=== PATIENT | male | born 1960 | race Caucasian/White ===

== ENCOUNTER → 2016-04-02 | Outpatient (CLI) | payer BC ==
--- NOTE | 2016-04-03 07:33 | US ---
EXAMINATION TYPE: US carotid duplex BILAT DATE OF EXAM: 04/02/2016 4:25 PM COMPARISON: NONE CLINICAL HISTORY: US. Syncope/collapse EXAM MEASUREMENTS: RIGHT: Peak Systolic Velocity (PSV) cm/sec ----- Right CCA: 104.3 ----- Right ICA: 93.0 ----- Right ECA: 114.4 ICA/CCA ratio: 0.9 RIGHT: End Diastole cm/sec ----- Right CCA: 22.2 ----- Right ICA: 22.2 ----- Right ECA: 14.7 LEFT: Peak Systolic Velocity (PSV) cm/sec ----- Left CCA: 128.3 ----- Left ICA: 109.4 ----- Left ECA: 110.6 ICA/CCA ratio: 0.9 LEFT: End Diastole cm/sec ----- Left CCA: 33.6 ----- Left ICA: 38.7 ----- Left ECA: 15.9 VERTEBRALS (direction of flow): Right Vertebral: Antegrade Left Vertebral: Antegrade IMPRESSION: Mild plaque noted bilateral bifurcations. No increased velocities. NO significant stenos is. Criteria for Assigning % of Stenosis / Diameter reduction (Estimation based on the indirect measurements of the internal carotid artery velocities (ICA PSV). 1. Normal (no stenosis)=ICA PSV < 125 cm/s: ratio < 2.0: ICA EDV<40 cm/s. 2. Less than 50% stenosis=ICA PSV < 125 cm/s: ratio < 2.0: ICA EDV<40 cm/s. 3. 50 to 69% stenosis=ICA PSV of 125 to 230 cm/s: ration 2.0 ? 4.0: ICA EDV 40-100 cm/s. 4. Greater than 70% stenosis to near occlusion= ICA PSV > 230 cm/s: ratio > 4.0: ICA EDV > 100 cm/s. 5. Near occlusion= ICA PSV velocities may be low or undetectable: variable ratio and ICA EDV. 6. Total occlusion=unable to detect flow.
== END | disposition home or self-care (01) ==
LOC: RADUSWWP 15:57
PROVIDERS: ATTEND Family Medicine
DX: I65.23 Occlusion and stenosis of bilateral carotid arteries (principal)
CPT/HCPCS: 93880

== ENCOUNTER → 2021-05-19 | Outpatient (CLI) | payer BC ==
--- NOTE | 2021-05-19 22:32 | CT ---
EXAMINATION TYPE: CT abdomen pelvis wo/w con DATE OF EXAM: 05/19/2021 COMPARISON: CT dated 10/15/2015 HISTORY: RUQ pain and gas CT DLP: 1998 mGycm Automated exposure control for dose reduction was used. TECHNIQUE: Helical acquisition of images was performed from the lung bases through the pelvis. CONTRAST: Performed with Oral Contrast and without and with IV Contrast, patient injected with 100 mL of Isovue 300. FINDINGS: Right renal pelvis staghorn stone measuring 15 x 19 x 11 mm. Associated surrounding fat stranding and apparent soft tissue thickening, this could be related to chronic infection however urothelial lesio n cannot be excluded. Please correlate with urinalysis results. Dilated right upper and to a lesser e xtent middle calyceal group likely secondary to the renal pelvis stone. Nonobstructing 2 mm calculus is seen at the lower pole of the right kidney. No radiodense left renal, ureteric or urinary bladder calculi. No hydroureter or left hydronephrosis. Bilateral perinephric fat stranding, nonspecific. Small bilateral renal cysts without suspicious fea tures, otherwise unremarkable kidneys. Unremarkable urinary bladder, prostate and seminal vesicles. No definite hepatic focal lesion. Unremarkable gallbladder, spleen, pancreas and adrenals. Retroaorti c left renal vein. Minimal arterial atherosclerotic calcifications. Unremarkable stomach and duodenum . Segments of mild nonspecific colonic wall thickening, most evident involving the cecum as well as t he terminal ileum, please correlate with coloscopy results. Unremarkable remainder of the small bowel . Fat-containing umbilical hernia. No suspicious lymphadenopathy or sizable ascites. Unremarkable anne marie g bases. Degenerative changes at L5-S1 level. IMPRESSION: Partially obstructing right renal pelvis stone as described above. Surrounding fat stranding and soft tissue thickening which could be related to chronic infection however associated urothelial lesion c annot be excluded. Please correlate with urinalysis results including cytology. Further urology consu ltation can be also considered. Segments of colonic wall thickening, most evident at the cecum as well as the terminal ileum, please correlate with coloscopy results. Other incidental findings as detailed above.
== END | disposition home or self-care (01) ==
LOC: RADCTMAIN 13:31
PROVIDERS: ATTEND Family Medicine
DX: N20.0 Calculus of kidney (principal); R10.84 Generalized abdominal pain
CPT/HCPCS: 82565; 84520; 74178; 36415; Q9967

== ENCOUNTER 2021-07-11 08:55 | Day surgery (SDC) | payer BC ==
[2021-07-09 11:44] VITALS: BMI 27.8
[~2021-07-11 08:55] MED LIST: LACTATED RINGERS 1,000 ML IV SCH
[2021-07-11 09:16] VITALS: TEMP 98.2
[2021-07-11] MEDS ORDERED: LIDOCAINE 1% INJ 10MG/ML (20 ML MDV) ONE (10:30)
[2021-07-11] MEDS ORDERED: PROPOFOL 10 MG/ML 20 ML VIAL IV ONE (10:30)
[2021-07-11] MEDS ORDERED: IV FLUID CONTINUATION 1,000 ML IV ONE (10:46)
--- NOTE | 2021-07-11 10:48 | P.PCN ---
Date of Procedure: 07/11/21 Procedure(s) Performed: BRIEF HISTORY: Patient is a 60-year-old pleasant male scheduled for an elective colonoscopy as a part of the for colorectal neoplasia. PROCEDURE PERFORMED: Colonoscopy. PREOPERATIVE DIAGNOSIS: Screening for colon cancer. IV sedation per Anesthesia. PROCEDURE: After informed consent was obtained, the patient, was brought into the endoscopy unit. IV sedation was administered by Anesthesia under continuous monitoring. Digital rectal examination was normal. Initially the Olympus CF-160 flexible video colonoscope was then inserted in the rectum, gradually advanced into the cecum without any difficulty. Careful examination was performed as the scope was gradually being withdrawn. Ileocecal valve and the appendiceal orifice were visualized and appeared normal. Prep was excellent. Mucosa of the cecum, ascending colon, transverse colon, descending colon, sigmoid colon, and rectum appeared normal. Retroflexion was performed in the rectum and no lesions were seen. The patient tolerated the procedure well. IMPRESSION: Normal-appearing colon from rectum to cecum no evidence of colorectal neoplasia . RECOMMENDATIONS: Findings of this examination were discussed with the patient as well as a family. He was advised to have a repeat screening colonoscopy in 10 years.
[2021-07-11 11:08] VITALS: BP 172/92; PULSE 62; RESP 15
== END 2021-07-11 11:25 | disposition home or self-care (01) ==
LOC: ORWHC2ENDO 08:55
PROVIDERS: ATTEND Internal Medicine Gastroenterology
DX: Z12.11 Encounter for screening for malignant neoplasm of colon (principal); I10 Essential (primary) hypertension; K21.9 Gastro-esophageal reflux disease without esophagitis; Z79.84 Long term (current) use of oral hypoglycemic drugs; Z79.899 Other long term (current) drug therapy
CPT/HCPCS: J2001; J2704; G0121

== ENCOUNTER 2021-11-20 07:11 | Day surgery (SDC) | payer BC ==
--- NOTE | 2021-11-15 09:00 | P.GSHP ---
History of Present Illness H&P Date: 11/15/21 Chief Complaint: Right flank pain The patient is a 61-year-old white male who underwent right ureteroscopy with holmium laser lithotripsy in 2016. He now presents with right flank pain. CT scan shows a 15 x 19 x 11 mm right renal pelvic calculus, as well as a 2 mm right lower pole renal calculus. He was offered the options of a percutaneous nephrolithotomy versus ureteroscopy with laser lithotripsy. He has elected to undergo the latter. He understands that this may require a staged procedure given the stone burden. - Constitutional Constitutional: Denies chills, Denies fever - Gastrointestinal Gastrointestinal: Denies nausea, Denies vomiting - Genitourinary (Male) Genitourinary: Reports flank pain, Reports kidney stones, Denies hematuria Past Medical History Past Medical History: GERD/Reflux, Hypertension Additional Past Medical History / Comment(s): kidney stones,states "not diabetic but takes metformin because has had elevated blood sugars ,migraines History of Any Multi-Drug Resistant Organisms: None Reported Additional Past Surgical History / Comment(s): colonoscopy, Past Anesthesia/Blood Transfusion Reactions: No Reported Reaction Additional Past Anesthesia/Blood Transfusion Reaction / Comment(s): WAS SLOW TO WAKE UP AFTER COLONOSCOPY Smoking Status: Never smoker - Past Family History Father History Unknown: Yes Mother History Unknown: Yes Medications and Allergies Home Medications Medication Instructions Recorded Confirmed Type SUMAtriptan succinate [Imitrex] 50 mg PO DAILY PRN 10/17/15 07/11/21 History cloNIDine 0.3 MG/24HR PATCH 2 each TRANSDERM MO 10/17/15 07/11/21 History [Catapres-Tts 0.3MG Patch] Ergocalciferol [Vitamin D2 (1250 1,250 mcg PO FR 07/09/21 07/11/21 History Mcg = 05294 Iu)] Famotidine 40 mg PO DAILY 07/09/21 07/11/21 History Ibuprofen/Pseudoephedrine HCl 1 each PO DAILY 07/09/21 07/11/21 History [Ibuprofen Cold-Sinus Cplt] Montelukast [Singulair] 10 mg PO DAILY 07/09/21 07/11/21 History atenoloL [Tenormin] 100 mg PO BID 07/09/21 07/11/21 History metFORMIN HCL [Glucophage] 1,000 mg PO DIRECTED PRN MDD PT 07/09/21 07/11/21 History NOT DIABETIC Allergies Allergy/AdvReac Type Severity Reaction Status Date / Time No Known Allergies Allergy Verified 07/11/21 09:10 Surgical - Exam - General well developed, well nourished, no distress - Respiratory normal respiratory effort - Abdomen Abdomen: soft, non tender, no guarding, no rigid, no rebound Hernia: umbilical - Genitourinary normal penis with no external lesions, testicles non-tender - Psychiatric oriented to time, oriented to person, oriented to place, speech is normal, memory intact Results - Imaging CT scan - abdomen: report reviewed, image reviewed Assessment and Plan (1) Calculus of kidney Status: Acute Code(s): N20.0 - CALCULUS OF KIDNEY SNOMED Code(s): 40164503 Plan: Cystoscopy, right ureteroscopy with Holmium laser lithotripsy, possible stone basketing, right ureteral stent insertion. The procedure has been reviewed in detail with the patient. He is aware of potential risks, which include anesthesia, bleeding, infection, and ureteral injury. He may require a secondary procedure given the stone burden.
[2021-11-19 12:18] VITALS: BMI 28.1
[~2021-11-20 07:11] MED LIST changes: +DEXAMETHASONE SOD PHOSPHATE 4 MG/ML 1 ML VIAL IV ONE; +HYDROmorphone 0.5 MG/0.5 ML SYRINGE IVP PRN; +LIDOCAINE 1% (10MG/ML) FOR IV START INTRADERMA PRN; +ONDANSETRON 4 MG/2 ML VIAL IVP PRN
--- NOTE | 2021-11-20 08:02 | XR ---
EXAMINATION TYPE: XR KUB DATE OF EXAM: 11/20/2021 HISTORY: Right renal calculus N 20.0 Comparison: CT abdomen pelvis 05/19/2021, KUB 10/18/2015. Technique: Supine KUB was obtained. Findings: Right renal calculi: Redemonstration of 2.4 x 1.2 cm calculus in the right renal pelvis. Right ureteral calculi: None Visualized. Left renal calculi: None Visualized. Left ureteral calculi: None Visualized. Pelvic calcifications: None Visualized. Bowel gas pattern is unremarkable. No free air. No mass effects. IMPRESSION: Redemonstration of 2.4 x 1.2 cm calculus in the right renal pelvis.
[2021-11-20] MEDS ORDERED: LACTATED RINGERS 1,000 ML IV ONE (10:25)
[2021-11-20 11:12] VITALS: TEMP 97.4
--- NOTE | 2021-11-20 11:26 | FL ---
EXAMINATION TYPE: FL guidance operating room DATE OF EXAM: 11/20/2021 CLINICAL HISTORY: Right-sided renal calculus TECHNIQUE: Fluoroscopy. COMPARISON: Same day abdominal x-ray. FINDINGS: Fluoroscopic guidance was provided during right sided calculus treatment procedure perform ed by Dr. Denney. A total of 37 seconds of fluoroscopic time was utilized during the procedure and 3 spot images was acquired. Intraoperative images show placement of a ureter stent. IMPRESSION: As Above.
[2021-11-20] MEDS ORDERED: hydrALAZINE HCL 20 MG/ML 1 ML VIAL IVP ONE (11:36)
[2021-11-20 11:48] VITALS: RESP 16
--- NOTE | 2021-11-20 12:08 | P.OP ---
Date of Procedure: 11/20/21 Preoperative Diagnosis: Right renal calculus Postoperative Diagnosis: Same Procedure(s) Performed: Cystoscopy, right ureteroscopy with Holmium laser lithotripsy, right ureteral stent insertion Anesthesia: MARIA ELENAA Surgeon: Joao Denney Estimated Blood Loss (ml): 0 IV fluids (ml): 700 Pathology: none sent Condition: stable Disposition: PACU Indications for Procedure: The patient is a 61-year-old white male who underwent right ureteroscopy with holmium laser lithotripsy in 2016. He now presents with right flank pain. CT scan shows a 15 x 19 x 11 mm right renal pelvic calculus, as well as a 2 mm right lower pole renal calculus. He was offered the options of a percutaneous nephrolithotomy versus ureteroscopy with laser lithotripsy. He has elected to undergo the latter. He understands that this may require a staged procedure given the stone burden. Operative Findings: Large right renal pelvic calculus, fragmented completely. Description of Procedure: The patient was taken to the operating room and placed in the dorsolithotomy position, with legs supported in Abdirahman stirrups. The external genitalia was prepped and draped sterilely. The 30 lens was used to introduce the 21-Malay Sewell cystoscopic sheath through the urethra and into the bladder under direct vision. The prostatic urethra showed evidence of mild lateral lobe enlargement. The bladder was examined in its entirety. Both ureteral orifices were normal anatomic location and configuration, and clear urine effluxed from both. No tumors or foreign bodies were seen. A 0.038 inch Glidewire was passed through the cystoscope. The ureteral orifice was cannulated, and the Glidewire was advanced up to the renal pelvis. The cystoscope was removed, and an 11/13- Malay ureteral access catheter was passed over the wire, up to the proximal ureter. The flexible ureteroscope was then passed through the ureteral access catheter sheath, up to the right renal pelvis. A large calculus was seen within the renal pelvis. The 272 micron Holmium laser probe was passed through the ureteroscope, and lithotripsy was performed utilizing a dusting mode. This reduced most of the calculus to powder, but there was some residual gravel which was fragmented using a popcorning methodology until there were no residual calculus fragments exceeding the size of the laser fiber tip. The ureteroscope was withdrawn. There was no evidence of ureteral trauma. The Glidewire was passed through the ureteral access catheter sheath, which was removed. The Glidewire was backloaded into the cystoscope, which was passed into the bladder. A 26 cm, 4.8-Malay double-J ureteral stent was placed over the wire. Proper stent positioning was verified fluoroscopically and endoscopically. The bladder was emptied and the cystoscope removed. The patient tolerated the procedure well and was taken to the recovery room in stable condition. KALYANI WOOD Report: Procedure Acuity: Elective Stone Size and Location: 11 x 15 x 19 mm right renal pelvic calculus Ureteral Dilation: No Ureteral Access Sheath Used: Yes Stone Sent for Analysis: No All Stones/Fragments Were Removed with a Basket: No Complications: No Preoperative Antibiotics Given: Yes Stent Placed: Yes If Stent Placed, Was String Left Attached: No If Stent Placed, When is it to be Removed: 2 weeks Discharge Medications: Tamsulosin, Toradol
[2021-11-20 12:28] VITALS: BP 142/86; PULSE 67
== END 2021-11-20 12:29 | disposition home or self-care (01) ==
LOC: OR 07:11
PROVIDERS: ATTEND Urology
DX: N20.1 Calculus of ureter (principal); K21.9 Gastro-esophageal reflux disease without esophagitis; I10 Essential (primary) hypertension; G43.909 Migraine, unspecified, not intractable, without status migrainosus; Z84.89 Family history of other specified conditions; Z79.899 Other long term (current) drug therapy
CPT/HCPCS: 52353; 74018; C2625; C1769; J0360; J1100; J0690; J2405

== ENCOUNTER → 2022-01-19 | Outpatient (CLI) | payer BC ==
--- NOTE | 2022-01-19 12:23 | US ---
EXAMINATION TYPE: US kidneys/renal and bladder DATE OF EXAM: 01/19/2022 COMPARISON: 12/02/2015 CLINICAL HISTORY: 61-year-old male N20.0 Calculus of kidney. Hx of stones had them removed in 2021. TECHNIQUE: Multiple sonographic images of the kidneys and bladder are obtained. FINDINGS: EXAM MEASUREMENTS: Right Kidney: 11.1 x 5.5 x 4.6 cm Left Kidney: 10.5 x 4.5 x 4.4 cm Right Kidney: Hypoechoic area central mid to lower pole measuring 1.6 x 1.3 x 1.3 cm. No calyceal di latation to suggest hydronephrosis. Left Kidney: Anechoic area lower pole 1.4 x 1.3 x 1.5cm and 1.1 x 1.5 x 1.3 cm, likely benign cysts. Bladder: wnl Bilateral Jets seen: Yes IMPRESSION: 1. Similar findings suggesting a parapelvic cyst mid to lower pole right kidney. 2. A couple benign cortical cyst at the lower pole left kidney measuring up to 1.5 cm. 3. No hydronephrosis.
== END | disposition home or self-care (01) ==
LOC: RADUSWWP 08:43
PROVIDERS: ATTEND Urology
DX: N28.1 Cyst of kidney, acquired (principal)
CPT/HCPCS: 76770

== ENCOUNTER → 2022-09-16 | Outpatient (CLI) | payer BC ==
[2022-09-16 16:46] LABS: T4, Free (Free Thyroxine) 0.97 ng/dL (0.80-1.80)
[2022-09-16 16:50] LABS: Albumin 4.7 d/dL (3.8-4.9); Protein, Total 7.4 d/dL (6.2-8.2)
[2022-09-18 06:44] LABS: Gamma Globulin 1.14 d/dL (0.70-1.50)
== END | disposition home or self-care (01) ==
LOC: LABWHC1 11:55
PROVIDERS: ATTEND Psychiatry & Neurology Neurology
DX: G62.9 Polyneuropathy, unspecified (principal)
CPT/HCPCS: 36415; 82607; 84165; 84207; 84439; 84443; 85652; 86038; 86618

== ENCOUNTER → 2022-10-05 | Outpatient (CLI) | payer BC ==
--- NOTE | 2022-10-05 14:45 | MR ---
EXAMINATION TYPE: MR cervical spine wo con DATE OF EXAM: 10/05/2022 INDICATION: Patient age: Male; 61 years old; Reason for study: M50.01. Tingling in left arm/legs, neck stiffness COMPARISON: None. TECHNIQUE: Multi planar, multi sequence imaging was performed utilizing: T1-weighted, T2-weighted, an d turbo inversion recovery imaging of the cervical spine. IV Contrast: None FINDINGS: Alignment: The cervical vertebral bodies have preserved heights. Alignment is within normal limits gi kale patient positioning. Bones: Scattered Modic endplate changes with osteophytes and disc space narrowing. Multilevel degener ative disc disease is noted and most pronounced at the C5-C7 vertebral levels with osteophyte formati on and disc space narrowing.. Inversion recovery bony edema of the adjoining endplates of C6 and C7. Cord: The spinal cord is unremarkable with regards to their signal intensity and morphology. Discs: Multilevel disc desiccation is present. C2-C3: No significant disc pathology. The spinal canal is patent. No neural foraminal stenosis. C3-C4: No significant disc pathology. The spinal canal is patent. Bilateral facet and uncovertebral joint arthropathy are present with mild to moderate bilateral neural foraminal stenosis. C4-C5: A disc osteophyte complex is present with moderate spinal canal stenosis. Bilateral facet and uncovertebral joint arthropathy are present with moderate bilateral neural foraminal stenosis. C5-C6: A disc osteophyte complex is present with mild spinal canal stenosis. Bilateral facet and unc overtebral joint arthropathy are present with moderate bilateral neural foraminal stenosis. C6-C7: A disc osteophyte complex is present with mild spinal canal stenosis. Bilateral facet and unc overtebral joint arthropathy are present with moderate bilateral neural foraminal stenosis. C7-T1: No significant disc pathology. The spinal canal is patent. No neural foraminal stenosis. Other: None. IMPRESSION: 1. No evidence for disc herniation. 2. Multilevel disc degeneration with associated osteoarthritic changes worse at C4-C7 with moderate C 4-C5 spinal canal stenosis. Noted and cord signal maintained. Additional multilevel at least moderate neural foraminal stenosis throughout the spine particularly C4-C7.
== END | disposition home or self-care (01) ==
LOC: RADMRIMAIN 11:32
PROVIDERS: ATTEND Psychiatry & Neurology Neurology
DX: M50.01 Cervical disc disorder with myelopathy, high cervical region (principal); M47.12 Other spondylosis with myelopathy, cervical region; M99.71 Connective tissue and disc stenosis of intervertebral foramina of cervical region
CPT/HCPCS: 72141